=== PATIENT | female | born 1975 | race Caucasian/White ===

== ENCOUNTER 2017-03-27 21:54 | Emergency (ER) | payer BC ==
[2017-03-27] MEDS ORDERED: Aspirin Low Dose CHEW TAB* 81 MG PO ONE (22:39)
[2017-03-27] MEDS ORDERED: NS 0.9% 1000 ML* 1,000 ML IV ONE (22:40)
[2017-03-27 22:49] LABS: Hematocrit 39 % (35-47); Hemoglobin 13.1 g/dl (12.0-16.0); Mean Corpuscular HGB Conc 34 g/dl (31-36); Mean Corpuscular Hemoglobin 30 pg (27-31); Mean Corpuscular Volume 88 fL (80-97); Mean Platelet Volume 9 um3 (7.4-10.4); Red Blood Count 4.39 10^6/ul (4.0-5.4); Red Cell Distribution Width 13 % (10.5-15); White Blood Count 5.3 10^3/ul (3.5-10.8)
[2017-03-27 23:05] LABS: Albumin 3.7 g/dL (3.2-5.2); BUN/Creatinine Ratio 21.7 (8-20); Calcium 9.1 mg/dL (8.6-10.3); EGFR African American 119.4 (>60); EGFR Non-African American 92.9 (>60); Globulin 3.2 g/dL (2-4); Potassium 3.6 mmol/L (3.5-5.0); Total Bilirubin 0.2 mg/dL (0.2-1.0); Total Protein 6.9 g/dL (6.4-8.9)
[2017-03-28] MEDS ORDERED: Ketorolac INJ* 30 MG/ML 1 ML VIAL IV ONE (01:20)
--- NOTE | 2017-03-28 03:10 | ED ---
I, Oh,Sokevin, scribed for Cris Glass MD on 03/27/17 at 2226 . HPI Chest Pain - HPI Summary HPI Summary: This 41 y/o female presents to ED for acute intermittent chest pain since 1700 PM. Pain radiates to back and RUE. Pt was sitting down at a constitution party and at rest. Chest pain spontaneously resolved, and pt dismissed it until another episode occurred at 2000 PM with increased severity. Deep breath does not change the pain. Movement makes the pain better. Position does not change pain. Positive neck pain. PMHx includes gestational DM and HTN. Pt is currently on metoprolol. Primary care involves Dr. Guerra. Pt lives with and 2 kids. Pt is occasional drinker and nonsmoker. FHx is negative for cardiac dz. - History of Current Complaint Chief Complaint: EDChestPainROMI Time Seen by Provider: 03/27/17 22:07 Hx Obtained From: Patient, Medical Records Onset/Duration: Started Hours Ago, Atraumatic, Still Present Timing: Intermittent Pain Intensity: 2 Pain Scale Used: 0-10 Numeric Chest Pain Location: Diffuse Chest Pain Radiates: Yes Chest Pain Radiates To:: Back, Arm - RUE Aggravating Factor(s): Nothing Alleviating Factor(s): Other: - Movement Associated Signs and Symptoms: Positive: Chest Pain, Other: - neck pain. Negative: Shortness of Breath, Fever - Allergy/Home Medications Allergies/Adverse Reactions: Allergies Allergy/AdvReac Type Severity Reaction Status Date / Time No Known Allergies Allergy Verified 03/27/17 22:34 PMH/Surg Hx/FS Hx/Imm Hx Infectious Disease History: Denies: Traveled Outside the [place] in Last 30 Days Review of Systems Negative: Fever, Skin Diaphoresis Positive: Chest Pain - radiating to RUE and back Negative: Shortness Of Breath Positive: Other - neck pain All Other Systems Reviewed And Are Negative: Yes Physical Exam Triage Information Reviewed: Yes Vital Signs On Initial Exam: Initial Vitals Temp Pulse Resp BP Pulse Ox 98.5 F 76 18 160/88 100 03/27/17 22:05 03/27/17 22:05 03/27/17 22:05 03/27/17 22:05 03/27/17 22:05 Vital Signs Reviewed: Yes Appearance: Positive: Well-Appearing, No Pain Distress Skin: Positive: Warm, Skin Color Reflects Adequate Perfusion, Dry Head/Face: Positive: Normal Head/Face Inspection Eyes: Positive: EOMI, ZENY ENT: Positive: Normal ENT inspection Neck: Positive: Supple, Nontender Respiratory/Lung Sounds: Positive: Clear to Auscultation, Breath Sounds Present Cardiovascular: Positive: RRR, Pulses are Symmetrical in both Upper and Lower Extremities Abdomen Description: Positive: Nontender, Soft Musculoskeletal: Positive: Strength/ROM Intact Neurological: Positive: Sensory/Motor Intact, Alert, Oriented to Person Place, Time Diagnostics - Vital Signs Vital Signs Temp Pulse Resp BP Pulse Ox 03/27/17 22:05 98.5 F 76 18 160/88 100 - Laboratory Lab Results: Lab Results 03/27/17 03/27/17 03/27/17 Range/Units 22:08 22:08 22:08 WBC 5.3 (3.5-10.8) 10^3/ul RBC 4.39 (4.0-5.4) 10^6/ul Hgb 13.1 (12.0-16.0) g/dl Hct 39 (35-47) % MCV 88 (80-97) fL MCH 30 (27-31) pg MCHC 34 (31-36) g/dl RDW 13 (10.5-15) % Plt Count 252 (150-450) 10^3/ul MPV 9 (7.4-10.4) um3 Neut % (Auto) 66.5 (38-83) % Lymph % (Auto) 14.3 L (25-47) % [place] % (Auto) 10.6 H (1-9) % Eos % (Auto) 4.3 (0-6) % Baso % (Auto) 4.3 H (0-2) % Absolute Neuts (auto) 3.5 (1.5-7.7) 10^3/ul Absolute Lymphs (auto) 0.8 L (1.0-4.8) 10^3/ul Absolute Monos (auto) 0.6 (0-0.8) 10^3/ul Absolute Eos (auto) 0.2 (0-0.6) 10^3/ul Absolute Basos (auto) 0.2 (0-0.2) 10^3/ul Absolute Nucleated RBC 0 10^3/ul Nucleated RBC % 0.1 D-Dimer, Quantitative (Less Than 230) ng/mL Sodium 137 (133-145) mmol/L Potassium 3.6 (3.5-5.0) mmol/L Chloride 105 (101-111) mmol/L Carbon Dioxide 26 (22-32) mmol/L Anion Gap 6 (2-11) mmol/L BUN 15 (6-24) mg/dL Creatinine 0.69 (0.51-0.95) mg/dL Est GFR ( Amer) 119.4 (>60) Est GFR (Non-Af Amer) 92.9 (>60) BUN/Creatinine Ratio 21.7 H (8-20) Glucose 137 H (70-100) mg/dL Lactic Acid 0.7 (0.5-2.0) mmol/L Calcium 9.1 (8.6-10.3) mg/dL Total Bilirubin 0.20 (0.2-1.0) mg/dL AST 14 (13-39) U/L ALT 18 (7-52) U/L Alkaline Phosphatase 32 L (34-104) U/L Troponin I 0.00 (<0.04) ng/mL Total Protein 6.9 (6.4-8.9) g/dL Albumin 3.7 (3.2-5.2) g/dL Globulin 3.2 (2-4) g/dL Albumin/Globulin Ratio 1.2 (1-3) 03/27/17 03/28/17 Range/Units 22:08 02:16 WBC (3.5-10.8) 10^3/ul RBC (4.0-5.4) 10^6/ul Hgb (12.0-16.0) g/dl Hct (35-47) % MCV (80-97) fL MCH (27-31) pg MCHC (31-36) g/dl RDW (10.5-15) % Plt Count (150-450) 10^3/ul MPV (7.4-10.4) um3 Neut % (Auto) (38-83) % Lymph % (Auto) (25-47) % [place] % (Auto) (1-9) % Eos % (Auto) (0-6) % Baso % (Auto) (0-2) % Absolute Neuts (auto) (1.5-7.7) 10^3/ul Absolute Lymphs (auto) (1.0-4.8) 10^3/ul Absolute Monos (auto) (0-0.8) 10^3/ul Absolute Eos (auto) (0-0.6) 10^3/ul Absolute Basos (auto) (0-0.2) 10^3/ul Absolute Nucleated RBC 10^3/ul Nucleated RBC % D-Dimer, Quantitative < 200 (Less Than 230) ng/mL Sodium (133-145) mmol/L Potassium (3.5-5.0) mmol/L Chloride (101-111) mmol/L Carbon Dioxide (22-32) mmol/L Anion Gap (2-11) mmol/L BUN (6-24) mg/dL Creatinine (0.51-0.95) mg/dL Est GFR ( Amer) (>60) Est GFR (Non-Af Amer) (>60) BUN/Creatinine Ratio (8-20) Glucose (70-100) mg/dL Lactic Acid (0.5-2.0) mmol/L Calcium (8.6-10.3) mg/dL Total Bilirubin (0.2-1.0) mg/dL AST (13-39) U/L ALT (7-52) U/L Alkaline Phosphatase (34-104) U/L Troponin I 0.00 (<0.04) ng/mL Total Protein (6.4-8.9) g/dL Albumin (3.2-5.2) g/dL Globulin (2-4) g/dL Albumin/Globulin Ratio (1-3) Result Diagrams: 03/27/17 22:08 03/27/17 22:08 Lab Statement: Any lab studies that have been ordered have been reviewed, and results considered in the medical decision making process. - Radiology CXR Radiology Interpretation Completed By: ED Physician - See EMR - CT C-spine CT Interpretation: No Acute Changes CT Interpretation Completed By: Radiologist - EKG 7388 Cardiac Rate: NL - 72 bpm EKG Rhythm: Sinus Rhythm Re-Evaluation - Re-Evaluation First Eval Re-Evaluation Time: 01:19 Comment: MD in room to update pt on imaginag results and blood work. Plan of care involving discharge and outpatient f/u discussed and pt is agreeable. Chest Pain Course/Dx - Course Course Of Treatment: 41 yo female with right sided arm and chest pain. Pt had a CT of cspine that was neg since she had some tingling in c7-c8 distribution, two neg trops, a neg ddimer and neg cxr. Pt needs close f/u with her pmd - Diagnoses Provider Diagnoses: Chest pain, Arm pain, right Discharge - Discharge Plan Condition: Stable Disposition: HOME Referrals: Alma Guerra MD [Primary Care Provider] - The documentation as recorded by the Travon estevez Soohyun accurately reflects the service I personally performed and the decisions made by me, Cris Glass MD.
[2017-03-28] MEDS ORDERED: Naproxen TAB* 250 MG PO ONE (03:25)
[2017-03-28 03:39] VITALS: BP 121/74
--- NOTE | 2017-03-28 10:19 | RAD ---
INDICATION: Neck pain RIGHT side without preceding injury. COMPARISON: No relevant prior exams available on the [facility] PACS for comparison. TECHNIQUE: Multidetector CT images foramen magnum to lung apices without contrast. Multiplanar reformation. REPORT: Normal vertebral alignment accounting for exam positioning without spondylolisthesis or subluxation at any level. Negative for cervical vertebral body or posterior element fracture. Negative for paravertebral hematoma. The disc spaces appear within normal limits for age. Only minimal facet joint osteoarthritis. No suggestion of central canal or foraminal stenosis at any level. Mild bilateral apical pleural-parenchymal scarring at the visualized lung apices. IMPRESSION: Negative unenhanced cervical spine CT for age.
--- NOTE | 2017-03-28 11:29 | RAD ---
Indication: Intermittent RIGHT side chest pain since 1700 hours. Comparison: No relevant prior exams available on the [facility] PACS for comparison. Technique: Upright AP 2252 hours Report: Bilateral nipple shadows noted. Clear lungs and pleural spaces. Negative for pneumothorax. The heart, pulmonary vasculature, and mediastinal contours are unremarkable. Mild LEFT convex curve at the lower thoracic and lumbar spine with distal reversal. IMPRESSION: No evidence for acute intrathoracic disease.
== END 2017-03-28 03:43 | disposition home or self-care (01) ==
LOC: ED 21:54
DX: R07.89 Other chest pain (principal); M79.601 Pain in right arm; M54.2 Cervicalgia
CPT/HCPCS: 36415; 71010; 72125; 80053; 83605; 84484; 85025; 85379; 93005; 96361; 96374; 99283; A9270-GY; J1885

== ENCOUNTER 2018-11-30 16:37 | Emergency (ER) | payer BC ==
--- NOTE | 2018-11-30 17:15 | ED ---
Headache - HPI Summary HPI Summary: Patient complains of migraine headache starting at 11 AM today, and nausea vomiting and diarrhea with abdominal cramping starting last night. Patient also has history of migraines, states this is her typical presentation, pain 9/10. Has not taken any medications for same. Vomiting 10. Diarrhea 1. Abdominal pain worse just prior to nausea or diarrhea, resolves afterwards, intermittent, at worst 5/10, cramping. 5-year-old son just finished having same symptoms. Denies neck stiffness, fever, focal deficits, trauma, cough, sore throat, ear pain, CP, SOB, change in urine, change in BM, vaginal symptoms. Medical history is migraines. Abdominal surgical history is a "tummy tuck", hernia repair. - History Of Current Complaint Chief Complaint: EDHeadache Stated Complaint: HEADACHE/NAUSEA PER PT Time Seen by Provider: 11/30/18 16:58 Hx Obtained From: Patient Onset/Duration: Sudden Onset, Started hours ago Currently Pain Is: Moderate Timing: Hours Character: Throbbing Aggravating Factor: Bright Lights Allevating Factors: Nothing Associated Signs And Symptoms: Nausea, Vomiting - Allergies/Home Medications Allergies/Adverse Reactions: Allergies Allergy/AdvReac Type Severity Reaction Status Date / Time No Known Allergies Allergy Verified 11/30/18 16:52 PMH/Surg Hx/FS Hx/Imm Hx Endocrine/Hematology History: Denies: Hx Diabetes Cardiovascular History: Denies: Hx Hypertension, Hx Pacemaker/ICD History: Denies: Hx Renal Disease Musculoskeletal History: Denies: Hx Rheumatoid Arthritis, Hx Osteoporosis Sensory History: Denies: Hx Hearing Aid Opthamlomology History: Denies: Hx Legally Blind EENT History: Denies: Hx Deafness Neurological History: Denies: Hx Dementia Psychiatric History: Denies: Hx Panic Disorder - Surgical History Surgery Procedure, Year, and Place: 3 C SECTIONS Infectious Disease History: No Infectious Disease History: Denies: Traveled Outside the [place] in Last 30 Days - Social History Alcohol Use: Occasionally Substance Use Type: Reports: None Smoking Status (MU): Never Smoked Tobacco Review of Systems Constitutional: Negative Eyes: Negative ENT: Negative Cardiovascular: Negative Respiratory: Negative Positive: Abdominal Pain, Vomiting, Diarrhea, Nausea Genitourinary: Negative Musculoskeletal: Negative Skin: Negative Positive: Headache Psychological: Normal All Other Systems Reviewed And Are Negative: Yes Physical Exam - Summary Physical Exam Summary: Neuro exam normal. Abdomen soft nontender. Lung sounds clear to auscultation bilaterally. Triage Information Reviewed: Yes Vital Signs On Initial Exam: Initial Vitals Temp Pulse Resp BP Pulse Ox 98.7 F 114 18 125/83 97 11/30/18 16:47 11/30/18 16:47 11/30/18 16:47 11/30/18 16:47 11/30/18 16:47 Vital Signs Reviewed: Yes Appearance: Positive: Well-Appearing Skin: Positive: Warm Head/Face: Positive: Normal Head/Face Inspection Eyes: Positive: Normal ENT: Positive: Normal ENT inspection Neck: Positive: Supple Respiratory/Lung Sounds: Positive: Clear to Auscultation Cardiovascular: Positive: Normal Abdomen Description: Positive: Nontender Musculoskeletal: Positive: Normal Neurological: Positive: Normal Psychiatric: Positive: Normal AVPU Assessment: Alert - Ronald Coma Scale Best Eye Response: 4 - Spontaneous Best Motor Response: 6 - Obeys Commands Best Verbal Response: 5 - Oriented Coma Scale Total: 15 Diagnostics - Vital Signs Vital Signs Temp Pulse Resp BP Pulse Ox 11/30/18 16:47 98.7 F 114 18 125/83 97 - Laboratory Result Diagrams: 11/30/18 17:16 11/30/18 17:16 Lab Statement: Any lab studies that have been ordered have been reviewed, and results considered in the medical decision making process. Headache Course/Dx - Course Course Of Treatment: Patient complains of migraine headache starting at 11 AM today, and nausea vomiting and diarrhea with abdominal cramping starting last night. Patient also has history of migraines, states this is her typical presentation, pain 9/10. Has not taken any medications for same. Vomiting 10. Diarrhea 1. Abdominal pain worse just prior to nausea or diarrhea, resolves afterwards, intermittent, at worst 5/10, cramping. 5-year-old son just finished having same symptoms. Denies neck stiffness, fever, focal deficits, trauma, cough, sore throat, ear pain, CP, SOB, change in urine, change in BM, vaginal symptoms. Medical history is migraines. Abdominal surgical history is a tummy tuck, hernia repair. Physical exam:Neuro exam normal. Abdomen soft nontender. Lung sounds clear to auscultation bilaterally. Vital signs within normal limits. BUN/creatinine ratio 30. Labs otherwise unremarkable. Migraine controlled with migraine cocktail. No active vomiting here in the ED. Rx for Zofran. - Diagnoses Provider Diagnoses: Migraine, Nausea vomiting and diarrhea Discharge - Sign-Out/Discharge Documenting (check all that apply): Patient Departure Patient Received Moderate/Deep Sedation with Procedure: No - Discharge Plan Condition: Stable Disposition: HOME Prescriptions: Ondansetron ODT TAB* [Zofran 4 MG Odt TAB*] 4 mg PO Q8H PRN 4 Days #14 tab.odt PRN Reason: Nausea Patient Education Materials: Migraine Headache (ED), Acute Nausea and Vomiting (ED), Acute Diarrhea (ED) Referrals: Alma Guerra MD [Primary Care Provider] - Additional Instructions: Use Zofran as directed for nausea. Drink plenty of fluids to maintain hydration. Follow-up with primary care. Return to the ED for any new or worsening symptoms. - Billing Disposition and Condition Condition: STABLE Disposition: Home
[2018-11-30 17:31] LABS: ABS Basophils 0 10^3/ul (0-0.2); ABS Eosinophils 0.1 10^3/ul (0-0.6); ABS Lymphocytes 0.5 10^3/ul (1.0-4.8); ABS Monocytes 0.5 10^3/ul (0-0.8); ABS Neutrophils 6.4 10^3/ul (1.5-7.7); ABS Nucleated RBC 0 10^3/ul; Eosinophil % 0.7 %; Hematocrit 42 % (33-41); Hemoglobin 14.3 g/dL (12.0-16.0); Lymphocyte % 6.8 %; Mean Corpuscular HGB Conc 34 g/dL (31-36); Mean Corpuscular Hemoglobin 29 pg (27-31); Mean Corpuscular Volume 84 fL (80-97); Mean Platelet Volume 7.1 fL (7.4-10.4); Nucleated Red Blood Cells % 0; Platelet Count 309 10^3/uL (150-450); Red Blood Count 4.97 10^6 /uL (3.70-4.87); Red Cell Distribution Width 13 % (10.5-15); White Blood Count 7.5 10^3/uL (3.5-10.8)
[2018-11-30] MEDS: NS 0.9% 1000 ML** 1,000 ML IV ONE (17:31)
[2018-11-30] MEDS: Ketorolac INJ* 30 MG/ML 1 ML VIAL IV ONE (17:31)
[2018-11-30] MEDS: diPHENhydraMINE IV* 50 MG in NS 0.9% 50 ML* 50 ML IVPB ONE (17:34)
[2018-11-30] MEDS: Metoclopramide IV* 5 MG/ML 2 ML VIAL IV ONE (17:34)
[2018-11-30 17:43] LABS: ALT 21 U/L (7-52); AST 19 U/L (13-39); Albumin 4.1 g/dL (3.2-5.2); Albumin/Globulin Ratio 1.4 (1-3); Alkaline Phosphatase 37 U/L (34-104); Anion Gap 6 mmol/L (2-11); BUN/Creatinine Ratio 30.2 (8-20); Blood Urea Nitrogen 19 mg/dL (6-24); C Reactive Protein 3.57 mg/L (<8.01); CO2 Carbon Dioxide 28 mmol/L (22-32); Calcium 8.6 mg/dL (8.6-10.3); Chloride 104 mmol/L (101-111); EGFR African American 123.6 (>60); EGFR Non-African American 102.2 (>60); Glucose 109 mg/dL (70-100); Potassium 3.4 mmol/L (3.5-5.0); Sodium 138 mmol/L (135-145); Total Protein 7.1 g/dL (6.4-8.9)
[2018-11-30 17:49] LABS: HCG Pregnancy < 0.60 mIU/mL
[2018-11-30 19:52] VITALS: BP 138/84
== END 2018-11-30 20:02 | disposition home or self-care (01) ==
LOC: ED 16:37
DX: G43.909 Migraine, unspecified, not intractable, without status migrainosus (principal)
CPT/HCPCS: 36415; 80053; 84702; 85025; 86140; 96361; 96374; 96375; 99283; J1200; J1885; J2765